=== PATIENT | female | born 1990 | race Caucasian/White ===

== ENCOUNTER 2016-06-15 22:59 | Emergency (ER) | payer MEDICAID ==
[~2016-06-15] VITALS: Ht 157.5 cm; Wt 61.2 kg
[~2016-06-15 22:59] MED LIST: ABILIFY10 MG; AMOXICILLIN 50500 MG PO; AMOXICILLIN875 MG PO; BIAXIN500 MG PO; ESCITALOPRAM20 MG PO; FLEXERIL10 MG PO; HYDROCODONE1 TABLET PO; IBU600 MG PO; IRON TABLETS325 M1 PO; MOTRIN400 MG PO; MOTRIN600 MG PO; NICOTINE T21 MG/24 H TD; ORAL CONTRACEPTIVE; PERCOCET 325 MG1 TA4 PO; PHENERGAN 25MG.25 M1 PO; PRENATAL PLUS1 TA1 PO; PRENATAL VITAMI1 TA3 PO; SULFAMETHOXAZOL1 TA6 PO; SYNTHROID0.125 MG PO; TESSALON PERLE200 MG PO; ULTRAM50 MG PO
--- NOTE | 2016-06-15 23:18 | Emergency Room Report ---
History of Present Illness Time Seen by MD Logan Presenting Problem in Triage Pt arrived:Walked Presenting Problem:PT COMPLAINING OF PAIN IN LOWER ABDOMEN AND PELVIC AREA. PT STATES THAT IT STARTED THIS AM. 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 N Clinical Suspician of Infection? N Mental Status: 1 - Regular (Normal Baseline) Sepsis Risk:Low Sepsis Risk Have you (or family members/close friends) recently traveled outside the [place]? N If Yes, where/when: Have you had exposure to infectious disease within the past month? N TB? Other? Specify: Source patient, RN notes reviewed, family, old records Exam Limitations no limitations Comment lower abd pain with no vomiting Cardiac Chest Pain Chest pain indicative of cardiac No Timing/Duration this evening Severity moderate ALLERGIES Coded Allergies: No Known Allergies (06/15/16) Home Medications Reported Medications No Known Home Medications History Medical History General CAD? No Angina: No AL: No Hypertension? No Hyperlipidemia? No CHF? No DVT? No PE? No COPD? No Asthma? No Anemia? No GERD? No Gastric ulcers? No GI Bleed? No Hernia? No Thyroid Problems? No Hypothyroidism? No CVA? No Seizures? No Diabetes? No Renal Insuffiency? No End Stage Renal Disease? No UTI? No Stones? No BPH? No GB Disease: Yes Nephritic Syndrome? No Asplenia? No Hepatitis? No Sickle Cell Disease? No Arthritis? No Migraines? No Cataracts? No Glaucoma? No MRSA? No HIV? No TB? No Anxiety? Yes Depression? Yes Cancer? No More? 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 Respiratory denies cough, denies shortness of breath, denies wheezing Cardiovascular denies chest pain, denies palpitations, denies syncope Gastrointestinal see HPI, abdominal pain, denies diarrhea, denies vomiting Genitourinary denies: abnormal vaginal bleeding, dysuria, frequency, hesitancy, hematuria, genital lesions. Musculoskeletal denies back pain, denies joint pain, denies joint swelling, denies neck pain Skin denies rash Psychiatric/Neurological denies headache, denies seizure Physical Exam Vital Signs Vital Signs Date Time Temp Pulse Resp B/P Pulse O2 O2 Flow FiO2 Ox Delivery Rate 06/15 2328 18 06/15 2301 99.1 95 18 123/67 100 - WBC >12,000 or <4,000 or 10% bands? 2 or more SIRS Criteria Met? B/P:123/67 MAP:85 Creatinine >2.0? UA output<0.5ml/kg/hr for 2 hrs? Platelet count >100,000? Lactate >2.0mmol/1? INR >1.2 or PTT > than 60 sec? Evidence of Organ Dysfunction? Provider documented clinical suspician of infection? N Sepsis Criteria Count: 1 Sepsis Risk: Low Sepsis Risk General Appearance no apparent distress Eye Exam - bilateral eye PERRL, bilateral eye EOMI Ear, Nose, Throat normal ENT inspection Neck supple Respiratory Status No: respiratory distress. Cardiovascular regular rate/rhythm Peripheral Pulses Pulses normal Yes Gastrointestinal soft, no organomegaly, no pulsatile mass, no guarding, no rebound Back no CVA tenderness Extremities normal inspection Strength 4 Upper Ext (L), 4 Upper Ext (R), 4 Lower Ext (L), 4 Lower Ext (R) Pelvic normal external exam, discharge, tender w/ cervical motion, tender adnexa Nurse present during exam? Yes Neurologic alert, paster hat lining II-XII nml as tested, no motor/sensory deficits Reflexes Reflexes normal Yes Mental status normal mood/affect Skin intact Medical Decision Making LABS/Meds/Orders Pt receiving controlled substance in ED? No Results/Orders Laboratory Tests 06/16/16 0000: ESR Pending 06/15/160: Urine Color YELLOW, Urine Appearance CLEAR, Urine pH 6.5, Ur Specific [place] 1.015, Urine Protein TRACE H, Urine Ketones NEGATIVE, Urine Blood TRACE-LYSED, Urine Nitrate NEGATIVE, Urine Bilirubin NEGATIVE, Urine Urobilinogen 1.0, Ur Leukocyte Esterase 2+ H, Urine RBC 3-5, Urine WBC 10-20, Ur Squamous Epith Cells 3-5, Urine Bacteria 1+, Urine Mucus 1+, Urine Glucose NEGATIVE 06/15/162314: Amylase 40, Lipase 140 06/15/162314: Sodium 141, Potassium 3.8, Chloride 103, Carbon Dioxide 28, BUN 8, Creatinine 0.6, Estimated Creat Clear 136, Estimated GFR (MDRD) 120, Glucose 104, Calcium 8.7, Total Bilirubin 1.0, AST 18, ALT 25, Alkaline Phosphatase 102, Total Protein 7.2, Albumin 3.9, Globulin 3.3 H, Albumin/Globulin Ratio 1.2, WBC 12.3 H, RBC 4.11 L, Hgb 13.8, Hct 38.3, MCV 93.2, RDW 13.1, Plt Count 225, MPV 8.4, Gran % 74.9, Gran # 9.2 H, Lymphocytes % 20.3, Monocytes % 3.1, Eosinophils % 1.1, Basophils % 0.6, Lymphocytes # 2.5, Monocytes # 0.4, Eosinophils # 0.1, Basophils # 0.1, PUBS MCHC 36.0 H, MCH 33.5 H Current Medication Orders Sig/Home Start time Last Medication Dose Route Stop Time Status Admin Ceftriaxone Sodium 1 GM ONCE ONE 06/16 129 AC Sodium Chloride 50 ML IV 06/16 158 Morphine Sulfate 4 MG ONCE ONE 06/16 129 AC IV 06/16 130 Promethazine HCl 12.5 MG ONCE ONE 06/16 129 AC IV 06/16 130 Sodium Chloride 25 ML ONCE 06/16 AC IV 06/16 014 Ketorolac 0 .STK-MED ONE 06/15 2326 DC Tromethamine .ROUTE Ondansetron HCl 0 .STK-MED ONE 06/15 2326 DC .ROUTE Sodium Chloride 1,000 ML .STK-MED ONE 06/15 2325 DC IV Ketorolac 30 MG ONCE ONE 06/15 2314 DC 06/15 Tromethamine IV 06/15 Ondansetron HCl 4 MG ONCE ONE 06/15 2314 DC 06/15 IV 06/15 2315 232 Sodium Chloride 10 ML PRN PRN 06/15 2314 AC IV 01/12 2310 Sodium Chloride 1,000 ML .Q1H1M 06/15 2314 DC 06/15 IV 06/16 0015 2329 Orders Procedure Date/time Status DIET-NOTHING BY MOUTH 06/16 B Active WET PREP 06/16 005 Complete SED RATE 06/16 0055 Active CHLAMYDIA/GC 06/[address] ABD & PELVIS W/O CONTRAST 06/15 2337 Active CULTURE, URINE 06/15 2319 Active LIPASE 06/15 2311 Complete AMYLASE 06/[address] ABD/PELVIS REQ 06/15 2309 Complete IV SALINE LOCK 06/15 2309 Active URINALYSIS/COMPLETE 06/15 2309 Complete URINE 06/15 2309 Complete CBC WITH AUTO DIFF 06/15 2309 Complete CHEM 12 PROFILE 06/15 2309 Complete XRAY/CT/US XRAY/CT/US CT abdomen, pelvis CT interpretation by discussed w/radiologist Time results known: 35 CT Results normal/NAD Departure Departure Time of Disposition 35 Disposition DC Home or Self Care(routine) Clinical Impression Primary Impression: UTI (urinary tract infection) Qualifiers: Urinary tract infection type: site unspecified Hematuria presence: without hematuria Qualified Code: N39.0 - Urinary tract infection, site not specified Secondary Impressions: Pelvic pain Condition STABLE Patient Instructions DI for Urinary Tract Infection (UTI) Additional Instructions 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 Capsule) 100 MG PO BID #20 CAP ED Critical Care Critical Care No at 0110
[2016-06-15 23:29] LABS: HEMOGLOBIN 13.8 g/dL (12.2-16.2); LYMPH # 2.5 K/mm3 (0.7-4.5); LYMPH % 20.3 % (10-50.0)
[2016-06-15 23:32] LABS: URINE BILIRUBIN - DIPSTICK NEGATIVE (NEG); URINE BLOOD TRACE-LYSED (NEG)
[2016-06-16] MEDS ORDERED: MINOCYCLINE 10100 MG PO (01:19)
[2016-06-16 01:40] VITALS: BP 114/57
--- NOTE | 2016-06-16 05:22 | RADIOLOGY REPORT PS360 ---
CT ABD PELVIS W/O CONTRAST CLINICAL INDICATION: LOWER ABDOMINAL, PELVIC PAIN COMPARISON: None TECHNIQUE: Axial images obtained with sagittal and coronal reformats. PROCEDURE: Oral Contrast: None IV Contrast: None . FINDINGS: Lower thorax: No acute finding ABDOMEN: Liver: No masses or biliary dilatation. Gallbladder: Gallbladder is contracted. No radio opaque stones evident. Pancreas: No masses or peripancreatic fluid collections. Spleen: Unremarkable. Adrenals: Unremarkable Kidneys/ureters: No masses. No renal calculi. No hydronephrosis. No perinephric fluid collections. No ureteral dilatation or obvious ureteral calculi. PELVIS: Reproductive: Somewhat bulky uterus nonspecific. May better be evaluated with ultrasound warranted Bladder: Nondistended. No obvious stones or masses. Appendix: Small appendicolith noted. No wall thickening or distention or periappendiceal inflammatory change. No evidence of appendicitis. ABDOMEN & PELVIS: Stomach bowel: Nondistended. No obvious mass or thickening. Peritoneum: No abnormal fluid collections. No obvious inflammatory changes. No free air. Lymph nodes: No enlarged lymph nodes apparent. Vasculature: No evidence of abdominal aortic aneurysm. No retroperitoneal hemorrhage evident. Bones: No acute fracture IMPRESSION: No acute intra-abdominal or pelvic pathology evident
[2016-06-17 16:36] LABS: Neisseria gonorrhoeae, NAA Positive (Negative)
== END 2016-06-16 02:00 | disposition home or self-care (01) ==
LOC: ER 22:59
PROVIDERS: Emergency Medicine
DX: N39.0 Urinary tract infection, site not specified (principal); Z72.0 Tobacco use; F41.8 Other specified anxiety disorders
CPT/HCPCS: J2405

== ENCOUNTER → 2017-02-27 | Outpatient (CLI) | payer MEDICAID ==
[~2017-02-27] MED LIST changes: +MINOCYCLINE 10100 MG PO
--- NOTE | 2017-02-27 20:14 | RADIOLOGY REPORT PS360 ---
FOOT-RT-3 VIEWS HISTORY: RT ANKLE/FOOT PAIN Patient Age: 27 years: Female Ordering Physician: Sarahi Leslie APRN TECHNIQUE: 3 views right foot COMPARISON :February 2011 FINDINGS Metatarsals are intact no stress fracture or findings. The joint spaces are maintained throughout the foot with mild flexion positioning at the fourth toe noted. The tarsals are intact. The lateral nonweightbearing view of the suggest potential mild pes planus. Pain persist consider podiatry follow-up possible weightbearing views foot IMPRESSION: . No acute findings. Joint space is maintained. Suggestion of mild pes planus
--- NOTE | 2017-02-27 20:20 | RADIOLOGY REPORT PS360 ---
ANKLE-RT-3 VIEWS HISTORY: RT ANKLE/FOOT PAIN Patient Age: 27 years: Female Ordering Physician: Sarahi Leslie APRN TECHNIQUE: 3 views right ankle COMPARISON :February 2011 FINDINGS ankle mortise well-maintained. Dome of talus intact. The medial and lateral malleolus intact. Subtalar joint unremarkable. Again on possible mild pes planus suggested There is a small 5 mm x 7 mm sclerotic bone islandl at the lateral aspect of the talus.. This incidental minor feature more evident than it was on 2011 study. Doubt of significance. However pain should increase in believe & relieved by aspirin , may want to perform additional imaging. IMPRESSION: Ankle joint is intact well-maintained. Perhaps mild pes planus . Note small 7 mm sclerotic bone island at lateral/posterior talus. It is more evident than it was on 2011. I doubt this sclerotic focus is of significance in this 27-year-old.; However if should be progressive pain this may warrant follow-up imaging.
== END ==
LOC: RAD 15:30
DX: M25.571 Pain in right ankle and joints of right foot (principal); M79.671 Pain in right foot